=== PATIENT | male | born 1960 | race American Indian/Alaskan Native ===

== ENCOUNTER 2016-11-14 18:27 | Emergency (ER) | payer SELFPAY ==
--- NOTE | 2016-11-14 20:36 | Emergency Department Report ---
ED General Adult HPI - General Chief complaint: Headache Stated complaint: HEADACHE Time Seen by Provider: 11/14/16 20:36 Source: patient Mode of arrival: Ambulatory Limitations: No Limitations - History of Present Illness Initial comments: Patient is a 56-year-old male past medical history of retention. Who presents with headache that has been going on intermittently for the last 4 days. She states that the headache is located on his right temporal lobe and it radiates to his forehead. He denies having nausea or vomiting. Nothing seems to make the headache better or worse. Patient has tried Goody's powder with no effect. He states that he gets headaches like these they usually go away. Headache has been gradually going on no sudden onset. - Related Data Previous Rx's Medication Instructions Recorded Last Taken Type Aspirin [Aspirin TAB] 81 mg PO QDAY #30 tablet 11/25/14 Unknown Rx Atenolol [Tenormin] 50 mg PO DAILY #90 tab 11/25/14 Unknown Rx Gabapentin [Neurontin] 300 mg PO BID #60 capsule 11/25/14 Unknown Rx Lisinopril [Zestril TAB] 10 mg PO QDAY #30 tablet 11/25/14 Unknown Rx metFORMIN [Glucophage] 500 mg PO BID #120 tablet 11/25/14 Unknown Rx Allergies Allergy/AdvReac Type Severity Reaction Status Date / Time No Known Allergies Allergy Verified 12/21/13 07:53 ED Review of Systems ROS: Stated complaint: HEADACHE Other details as noted in HPI Constitutional: denies: chills, fever Eyes: denies: eye pain, eye discharge, vision change ENT: denies: ear pain, throat pain Respiratory: no symptoms reported Cardiovascular: denies: chest pain, palpitations Endocrine: no symptoms reported Gastrointestinal: denies: abdominal pain, nausea, diarrhea Genitourinary: as per HPI Musculoskeletal: denies: back pain, joint swelling, arthralgia Skin: denies: rash, lesions Neurological: headache Psychiatric: as per HPI Hematological/Lymphatic: denies: easy bleeding, easy bruising ED Past Medical Hx - Past Medical History Previous Medical History?: Yes Hx Hypertension: Yes Hx Diabetes: Yes Hx Liver Disease: Yes (hepatitis c) Additional medical history: high cholesterol. neuropathy. pancreatitis - Surgical History Past Surgical History?: Yes - Social History Smoking Status: Current Some Day Smoker Substance Use Type: Non Opiate Pain, Prescribed - Medications Home Medications: Home Medications Medication Instructions Recorded Confirmed Last Taken Type Aspirin [Aspirin TAB] 81 mg PO QDAY #30 tablet 11/25/14 11/14/16 Unknown Rx Atenolol [Tenormin] 50 mg PO DAILY #90 tab 11/25/14 11/14/16 Unknown Rx Gabapentin [Neurontin] 300 mg PO BID #60 capsule 11/25/14 11/14/16 Unknown Rx Lisinopril [Zestril TAB] 10 mg PO QDAY #30 tablet 11/25/14 11/14/16 Unknown Rx metFORMIN [Glucophage] 500 mg PO BID #120 tablet 11/25/14 11/14/16 Unknown Rx ED Physical Exam - General Limitations: No Limitations General appearance: alert, in no apparent distress - Head Head exam: Present: atraumatic, normocephalic - Eye Eye exam: Present: normal appearance - ENT ENT exam: Present: mucous membranes moist - Neck Neck exam: Present: normal inspection - Respiratory Respiratory exam: Present: normal lung sounds bilaterally. Absent: respiratory distress - Cardiovascular Cardiovascular Exam: Present: regular rate, normal rhythm. Absent: systolic murmur, diastolic murmur, rubs, gallop - GI/Abdominal GI/Abdominal exam: Present: soft, normal bowel sounds - Extremities Exam Extremities exam: Present: normal inspection - Back Exam Back exam: Present: normal inspection - Neurological Exam Neurological exam: Present: alert, oriented X3, CN II-XII intact, normal gait - Psychiatric Psychiatric exam: Present: normal affect, normal mood - Skin Skin exam: Present: warm, dry, intact, normal color. Absent: rash ED Course Vital Signs 11/14/16 11/14/16 18:37 23:54 Temperature 98.8 F Pulse Rate 70 67 Respiratory 18 16 Rate Blood Pressure 147/106 Blood Pressure 165/98 [Left] O2 Sat by Pulse 100 98 Oximetry - Reevaluation(s) Reevaluation #1: 11/14/16 21:38 Patient's headache is better will send patient home due to CT had been negative. Additional verbal discharge instructions were given. ED Medical Decision Making - EKG Data -: EKG Interpreted by Me - EKG Data 11/15/16 01:39 Chief sinus rhythm and no st segment elevation or t-wave inversions - Radiology Data Radiology results: report reviewed, image reviewed CT head noncontrast: Shows no acute intracranial findings. - Medical Decision Making Chief medical diagnosis: Tension headache Differential medical diagnosis: Brain tumor, cluster headache We'll get CT head, due to patient having headache without control of symptoms by oral medication patient will require IV medication and IV Reglan and IV Benadryl. Patient's headache is better due to patient's symptoms and gradual onset it is likely patient had a tension headache. Patient has no neurological deficits will send patient home. Critical care attestation.: If time is entered above; I have spent that time in minutes in the direct care of this critically ill patient, excluding procedure time. ED Disposition Clinical Impression: Tension headache Disposition: DC-01 TO HOME OR SELFCARE Is pt being admited?: No Does the pt Need Aspirin: No Condition: Stable Instructions: Tension Headache (ED) Referrals: PRIMARY CARE, [Primary Care Provider] - 3-5 Days Time of Disposition: 23:48
[2016-11-14] MEDS ORDERED: BENADRYL IV ONE (20:58)
[2016-11-14] MEDS ORDERED: REGLAN IV ONE (20:58)
[2016-11-14] MEDS ORDERED: NACL 0.9% 1000 ML 1,000 ML IV ONE (20:59)
--- NOTE | 2016-11-14 21:45 | Cat Scan Report ---
FINAL REPORT PROCEDURE: CT HEAD/BRAIN WO CON TECHNIQUE: Computerized tomography of the head was performed without contrast material. HISTORY: headache COMPARISON: No prior studies are available for comparison. FINDINGS: Skull and scalp: Normal. Paranasal sinuses: Normal. Ventricles and subarachnoid spaces: Normal. Cerebrum: No evidence of hemorrhage, acute infarction or mass . Cerebellum and brainstem: No evidence of hemorrhage, acute infarction or mass. Vasculature: Normal. Comments: None. IMPRESSION: Normal Examination
[2016-11-14 23:55] VITALS: BP 165/98
== END 2016-11-15 00:10 | disposition home or self-care (01) ==
LOC: ED 18:27
DX: G44.209 Tension-type headache, unspecified, not intractable (principal); I10 Essential (primary) hypertension; E11.9 Type 2 diabetes mellitus without complications; F17.200 Nicotine dependence, unspecified, uncomplicated
CPT/HCPCS: 70450; 93005; 93010; 96361; 96374; 96375; 99283; J1200; J2765; J7030

== ENCOUNTER 2017-01-29 13:09 | Emergency (ER) | payer SELFPAY ==
[2017-01-29 13:20] VITALS: BP 139/91
--- NOTE | 2017-01-29 14:02 | XRay Report ---
XRAY LEFT HAND THREE VIEWS: 01/29/17 13:09:00 CLINICAL: Fall with injury to the third, fourth and fifth digits. Pain. FINDINGS: No fracture or dislocation. Soft tissue swelling of the third, fourth and fifth digits. No foreign body or soft tissue air. 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 Mild radiocarpal joint arthritis. IMPRESSION: Soft tissue injury. Mild arthritis.
--- NOTE | 2017-01-29 14:18 | Emergency Department Report ---
ED Upper Extremity Inj HPI - General Chief Complaint: Extremity Injury, Upper Stated Complaint: SWELLING/PAIN IN LEFT HAND Time Seen by Provider: 01/29/17 14:03 Source: patient Mode of arrival: Ambulatory Limitations: No Limitations - History of Present Illness MD Complaint: Injury to:: left -: Sudden Other Extremity Injury: Hand: Left Other Injuries: none Handedness: right Place: home Improves With: none Worsens With: movement of extremity Context: fall Associated Symptoms: denies: weakness, numbness, neck pain, suspects foreign body, nausea/vomiting, heard/felt popping sensat - Related Data Previous Rx's Medication Instructions Recorded Last Taken Type Aspirin [Aspirin TAB] 81 mg PO QDAY #30 tablet 11/25/14 Unknown Rx Atenolol [Tenormin] 50 mg PO DAILY #90 tab 11/25/14 Unknown Rx Gabapentin [Neurontin] 300 mg PO BID #60 capsule 11/25/14 Unknown Rx Lisinopril [Zestril TAB] 10 mg PO QDAY #30 tablet 11/25/14 Unknown Rx metFORMIN [Glucophage] 500 mg PO BID #120 tablet 11/25/14 Unknown Rx Amoxicillin [Trimox CAP] 500 mg PO BID #20 capsule 01/29/17 Unknown Rx Allergies Allergy/AdvReac Type Severity Reaction Status Date / Time No Known Allergies Allergy Verified 01/29/17 13:18 ED Review of Systems ROS: Stated complaint: SWELLING/PAIN IN LEFT HAND Other details as noted in HPI Comment: All other systems reviewed and negative Constitutional: no symptoms reported, see HPI Eyes: as per HPI ENT: as per HPI Respiratory: no symptoms reported, see HPI Cardiovascular: as per HPI Endocrine: no symptoms reported, see HPI Gastrointestinal: as per HPI Genitourinary: as per HPI Musculoskeletal: as per HPI, other (l hand pain) Skin: as per HPI Neurological: as per HPI Psychiatric: as per HPI Hematological/Lymphatic: as per HPI ED Past Medical Hx - Past Medical History Hx Hypertension: Yes Hx Diabetes: Yes Hx Liver Disease: Yes (hepatitis c) Additional medical history: high cholesterol. neuropathy. pancreatitis - Surgical History Past Surgical History?: No - Social History Smoking Status: Never Smoker Substance Use Type: None - Medications Home Medications: Home Medications Medication Instructions Recorded Confirmed Last Taken Type Aspirin [Aspirin TAB] 81 mg PO QDAY #30 tablet 11/25/14 11/14/16 Unknown Rx Atenolol [Tenormin] 50 mg PO DAILY #90 tab 11/25/14 11/14/16 Unknown Rx Gabapentin [Neurontin] 300 mg PO BID #60 capsule 11/25/14 11/14/16 Unknown Rx Lisinopril [Zestril TAB] 10 mg PO QDAY #30 tablet 11/25/14 11/14/16 Unknown Rx metFORMIN [Glucophage] 500 mg PO BID #120 tablet 11/25/14 11/14/16 Unknown Rx Amoxicillin [Trimox CAP] 500 mg PO BID #20 capsule 01/29/17 Unknown Rx ED Physical Exam - General Limitations: No Limitations General appearance: alert - Head Head exam: Present: atraumatic - Eye Eye exam: Present: PERRL - ENT ENT exam: Present: mucous membranes moist - Neck Neck exam: Present: normal inspection - Respiratory Respiratory exam: Present: normal lung sounds bilaterally - Cardiovascular Cardiovascular Exam: Present: regular rate - GI/Abdominal GI/Abdominal exam: Present: soft - Rectal Rectal exam: Present: deferred - Extremities Exam Extremities exam: Present: normal inspection, full ROM, normal capillary refill. Absent: tenderness, pedal edema, joint swelling - Expanded Upper Extremity Exam Left General: Present: other Shoulder Exam: Present: normal inspection Upper Arm exam: Present: normal inspection Elbow exam: Present: normal inspection Forearm Wrist exam: Present: normal inspection, full ROM. Absent: tenderness, swelling, abrasion, laceration, ecchymosis, deformity, crepidus, dislocation, erythema, tenderness over anatomical snuff box, pain with axial thumb loading Hand Wrist exam: Present: normal inspection, full ROM, swelling, erythema. Absent: tenderness, abrasion, laceration, ecchymosis, deformity, crepidus, dislocation, amputation, nail avulsion, subungual hematoma - Back Exam Back exam: Present: normal inspection, full ROM. Absent: tenderness, CVA tenderness (R) - Neurological Exam Neurological exam: Present: alert, oriented X3, CN II-XII intact, normal gait - Psychiatric Psychiatric exam: Present: normal affect, normal mood - Skin Skin exam: Present: warm, dry, other (hand slightly red) ED Course Vital Signs 01/29/17 13:18 Temperature 99 F Pulse Rate 76 Respiratory 16 Rate Blood Pressure 139/91 O2 Sat by Pulse 98 Oximetry - Reevaluation(s) Reevaluation #1: 01/29/17 14:21 to er p fall several days ago w persistent hand pain hand swollen and slightly red no snuff box tenderness pt does have DM he thinks he may have scratched his hand but no lesion to the hand is noted rapid cap refill good pulses xray noted given redness and dm will place on anbx and monitor pt will see pcp on Tuesday Critical care attestation.: If time is entered above; I have spent that time in minutes in the direct care of this critically ill patient, excluding procedure time. ED Disposition Clinical Impression: Hand pain, right, Cellulitis Disposition: TO HOME OR SELFCARE Is pt being admited?: No Does the pt Need Aspirin: No Condition: Stable Instructions: Hand Sprain (ED) Additional Instructions: kevin to rest hand keep ice on hand med as ordered today follow up with pcp Prescriptions: Amoxicillin [Trimox CAP] 500 mg PO BID #20 capsule Referrals: SEN PRICE MD [Staff Physician] - 3-5 Days Time of Disposition: 14:15
== END 2017-01-29 14:31 | disposition home or self-care (01) ==
LOC: ED 13:09
DX: L03.114 Cellulitis of left upper limb (principal); L03.113 Cellulitis of right upper limb; I10 Essential (primary) hypertension; E11.40 Type 2 diabetes mellitus with diabetic neuropathy, unspecified; Z79.82 Long term (current) use of aspirin
CPT/HCPCS: 99283

== ENCOUNTER 2018-11-25 07:40 | Emergency (ER) | payer OTHER ==
[2018-11-25] MEDS ORDERED: CATAPRES PO ONE (08:40)
--- NOTE | 2018-11-25 08:40 | Emergency Department Report ---
ED Lower Extremity HPI - General Chief Complaint: Extremity Problem,Nontraumatic Stated Complaint: LEFT TOE INJURY Time Seen by Provider: 11/25/18 08:28 Source: patient Mode of arrival: Ambulatory Limitations: No Limitations - History of Present Illness Initial Comments: Patient is 58 years old male with history of hypertension and diabetes. Patient presented to the ER complaining of left fourth toe pain and swelling for the last 3 days. Patient stated that he is unsure if he injured it or not. Patient denied any fever or chills. Patient stated that he is compliant with his blood pressure medication. He denied any headache, neck pain, weakness numbness or tingling sensation. No bowel or bladder incontinence. No chest pain or shortness of breath. MD Complaint: foot injury - Related Data Previous Rx's Medication Instructions Recorded Last Taken Type Aspirin 81 mg PO QDAY #30 tablet 11/25/14 Unknown Rx Atenolol [Tenormin] 50 mg PO DAILY #90 tab 11/25/14 Unknown Rx Gabapentin [Neurontin] 300 mg PO BID #60 capsule 11/25/14 Unknown Rx Lisinopril [Zestril TAB] 10 mg PO QDAY #30 tablet 11/25/14 Unknown Rx metFORMIN [Glucophage] 500 mg PO BID #120 tablet 11/25/14 Unknown Rx Amoxicillin [Trimox CAP] 500 mg PO BID #20 capsule 01/29/17 Unknown Rx Allergies Allergy/AdvReac Type Severity Reaction Status Date / Time No Known Allergies Allergy Verified 11/25/18 07:42 ED Review of Systems ROS: Stated complaint: LEFT TOE INJURY Other details as noted in HPI Comment: All other systems reviewed and negative Constitutional: denies: chills, fever Cardiovascular: denies: chest pain Gastrointestinal: denies: abdominal pain, nausea, vomiting Neurological: denies: headache, weakness, numbness, paresthesias, confusion ED Past Medical Hx - Past Medical History Hx Hypertension: Yes Hx Diabetes: Yes Hx Liver Disease: Yes (hepatitis c) Additional medical history: high cholesterol. neuropathy. pancreatitis - Surgical History Past Surgical History?: No - Social History Smoking Status: Never Smoker Substance Use Type: None - Medications Home Medications: Home Medications Medication Instructions Recorded Confirmed Last Taken Type Aspirin 81 mg PO QDAY #30 tablet 11/25/14 11/14/16 Unknown Rx Atenolol [Tenormin] 50 mg PO DAILY #90 tab 11/25/14 11/14/16 Unknown Rx Gabapentin [Neurontin] 300 mg PO BID #60 capsule 11/25/14 11/14/16 Unknown Rx Lisinopril [Zestril TAB] 10 mg PO QDAY #30 tablet 11/25/14 11/14/16 Unknown Rx metFORMIN [Glucophage] 500 mg PO BID #120 tablet 11/25/14 11/14/16 Unknown Rx Amoxicillin [Trimox CAP] 500 mg PO BID #20 capsule 01/29/17 Unknown Rx ED Physical Exam - General Limitations: No Limitations General appearance: alert, in no apparent distress - Head Head exam: Present: atraumatic, normocephalic - ENT ENT exam: Present: normal exam - Neck Neck exam: Present: normal inspection. Absent: tenderness, meningismus - Respiratory Respiratory exam: Present: normal lung sounds bilaterally - Cardiovascular Cardiovascular Exam: Present: normal heart sounds - Expanded Lower Extremity Exam Left Knee exam: Present: normal inspection Lower Leg exam: Present: normal inspection Ankle exam: Present: normal inspection Foot/Toe exam: Present: tenderness (left fourth toe), swelling. Absent: abrasion, laceration, ecchymosis, deformity ED Course Vital Signs 11/25/18 11/25/18 07:42 08:54 Temperature 98.4 F 98.2 F Pulse Rate 80 68 Respiratory 18 18 Rate Blood Pressure 163/106 Blood Pressure 163/99 [Left] O2 Sat by Pulse 99 100 Oximetry ED Lower Extremity MDM - Radiology Data Radiology results: image reviewed interpreted by me: X-ray of the left fourth toe is negative for acute finding. Critical care attestation.: If time is entered above; I have spent that time in minutes in the direct care of this critically ill patient, excluding procedure time. ED Disposition Clinical Impression: Malignant hypertension, Cellulitis of toe, left Disposition: DC-01 TO HOME OR SELFCARE Is pt being admited?: No Condition: Stable Instructions: Cellulitis (ED), Hypertension (ED) Referrals: [facility] [Other] - 3-5 Days
--- NOTE | 2018-11-25 10:31 | XRay Report ---
HISTORY: Left fourth toe pain and swelling COMPARISON: None. TECHNIQUE: AP lateral and obliques FINDINGS: Bones: Small fragment of calcium at the articular space Joint spaces: Irregular cortex of the articular space Soft tissues: No significant abnormality. Additional findings: None. IMPRESSION: 1. Abnormal appearance of the mid distal phalanx of the fourth digit, destructive process should be considered recommend clinical correlation. MR is recommended further evaluation Signer Name: Jeff Madison MD Signed: 11/25/2018 10:27 AM Workstation Name: [id number]
[2018-11-25 10:48] VITALS: BP 150/99
== END 2018-11-25 10:48 | disposition home or self-care (01) ==
LOC: ED 07:40
DX: L03.032 Cellulitis of left toe (principal); I10 Essential (primary) hypertension; E11.9 Type 2 diabetes mellitus without complications; E78.00 Pure hypercholesterolemia, unspecified; Z86.19 Personal history of other infectious and parasitic diseases; Z79.84 Long term (current) use of oral hypoglycemic drugs

== ENCOUNTER 2019-06-20 18:10 | Emergency (ER) | payer SELFPAY ==
[2019-06-20] MEDS ORDERED: TETANUS,DIPH,PERTUSS(ACELL) VACCINE 0.5 ML SYRINGE IM ONE (19:57)
--- NOTE | 2019-06-20 19:57 | Emergency Department Report ---
Blank Doc - Documentation Documentation: 58-year-old male that presents with right foot pain s/p stepped on a nail. De oxana being UTD with tetanus. This initial assessment/diagnostic orders/clinical plan/treatment(s) is/are subject to change based on patient's health status, clinical progression and re- assessment by fellow clinical providers in the ED. Further treatment and workup at subsequent clinical providers discretion. Patient/guardians urged not to elope from the ED as their condition may be serious if not clinically assessed and managed. Initial orders include: 1- Patient sent to [facility] for further evaluation and treatment 2- xrays 3- tetanus needed
[2019-06-20 19:58] VITALS: BP 144/90
[2019-06-20] MEDS ORDERED: IBUPROFEN 600 MG TAB PO ONE (20:23)
[2019-06-20] MEDS ORDERED: levoFLOXacin 500 MG TAB PO ONE (20:23)
[2019-06-20] MEDS ORDERED: ACETAMINOPHEN 500 MG TAB PO ONE (20:23)
--- NOTE | 2019-06-20 21:06 | XRay Report ---
RIGHT FOOT 3 VIEWS INDICATION / CLINICAL INFORMATION: Right foot pain; r/o foreign body; Pt. reports he stepped on a "santiago nail" yesterday. COMPARISON: None available. FINDINGS: BONES / JOINT(S): No acute fracture or subluxation. There is a moderate size marginal erosion involvi ng the fifth metatarsal head laterally suggestive of gout. No associated joint space narrowing is see n. There is a small plantar calcaneal spur. There are mild degenerative changes involving the dorsum of the hindfoot. There are also degenerative changes involving the tibiotalar joint. SOFT TISSUES: I see no evidence of a radiopaque foreign body. ADDITIONAL FINDINGS: None. Signer Name: Harrison Maciel MD Signed: 06/20/2019 9:01 PM Workstation Name: [email or web address]
--- NOTE | 2019-06-20 21:35 | Emergency Department Report ---
ED Lower Extremity HPI - General Chief Complaint: Extremity Injury, Lower Stated Complaint: STEPPED ON NAIL Time Seen by Provider: 06/20/19 19:56 Source: patient Mode of arrival: Ambulatory Limitations: No Limitations - History of Present Illness Initial Comments: Patient is a 58-year-old -[place] male with a history of hypertension and [id number] diabetes who presented to the ED with complaint of acute onset persistent severe right plantar foot pain after he stepped on a santiago nail that appears through his shoes into his plantar right foot over 12 hours ago. Patient states that the pain is worse with any ambulation and that he can hardly bear weight on the right foot. Patient denies fall, fever, chills, nausea, vomiting, dizziness, numbness and tingling of right foot. Patient states that he is not up-to-date with his tetanus vaccinations. MD Complaint: foot injury (right foot puncture wound, stepped on an old santiago nail) -: Sudden, hour(s) (12) Injury: Foot: Right (right plantar foot pain due to puncture wound) Type of Injury: laceration (puncture wound), puncture wound Place: home Severity: severe Severity scale (0 -10): 7 Improves With: nothing Worsens With: weight bearing, movement, palpation Context: stepped on nail Associated Symptoms: able to partially bear weight. denies: snap/pop sensation, swelling, numbness, tingling - Related Data Previous Rx's Medication Instructions Recorded Last Taken Type Aspirin 81 mg PO QDAY #30 tablet 11/25/14 Unknown Rx Gabapentin 300 mg PO BID #60 capsule 11/25/14 Unknown Rx atenoloL [Tenormin] 50 mg PO DAILY #90 tab 11/25/14 Unknown Rx lisinopriL [Zestril TAB] 10 mg PO QDAY #30 tablet 11/25/14 Unknown Rx metFORMIN [Glucophage] 500 mg PO BID #120 tablet 11/25/14 Unknown Rx Amoxicillin [Trimox CAP] 500 mg PO BID #20 capsule 01/29/17 Unknown Rx cephALEXin [Keflex] 500 mg PO Q8HR #28 cap 11/25/18 Unknown Rx Ciprofloxacin HCl [Ciprofloxacin 500 mg PO Q12HR #20 tab 06/20/19 Unknown Rx TAB] Ibuprofen [Motrin] 800 mg PO Q8HR PRN #30 tablet 06/20/19 Unknown Rx traMADoL [Ultram] 50 mg PO Q6HR PRN #12 tablet 06/20/19 Unknown Rx Allergies Allergy/AdvReac Type Severity Reaction Status Date / Time No Known Allergies Allergy Verified 11/25/18 07:42 ED Review of Systems ROS: Stated complaint: STEPPED ON NAIL Other details as noted in HPI Constitutional: denies: chills, fever Eyes: denies: eye pain, eye discharge, vision change ENT: denies: ear pain, throat pain Respiratory: denies: cough, shortness of breath, wheezing Cardiovascular: denies: chest pain, palpitations Endocrine: no symptoms reported Gastrointestinal: denies: abdominal pain, nausea, diarrhea Genitourinary: denies: urgency, dysuria Musculoskeletal: arthralgia (right plantar foot pain due to puncture wound). denies: back pain, joint swelling Skin: other (Right plantar foot pain due to puncture wound). denies: rash, le sions Neurological: denies: headache, weakness, paresthesias Psychiatric: denies: anxiety, depression Hematological/Lymphatic: denies: easy bleeding, easy bruising ED Past Medical Hx - Past Medical History Previous Medical History?: Yes Hx Hypertension: Yes Hx Diabetes: Yes Hx Liver Disease: Yes (hepatitis c) Additional medical history: high cholesterol. neuropathy. pancreatitis - Surgical History Past Surgical History?: No - Social History Smoking Status: Never Smoker Substance Use Type: None - Medications Home Medications: Home Medications Medication Instructions Recorded Confirmed Last Taken Type Aspirin 81 mg PO QDAY #30 tablet 11/25/14 11/14/16 Unknown Rx Gabapentin 300 mg PO BID #60 capsule 11/25/14 11/14/16 Unknown Rx atenoloL [Tenormin] 50 mg PO DAILY #90 tab 11/25/14 11/14/16 Unknown Rx lisinopriL [Zestril TAB] 10 mg PO QDAY #30 tablet 11/25/14 11/14/16 Unknown Rx metFORMIN [Glucophage] 500 mg PO BID #120 tablet 11/25/14 11/14/16 Unknown Rx Amoxicillin [Trimox CAP] 500 mg PO BID #20 capsule 01/29/17 Unknown Rx cephALEXin [Keflex] 500 mg PO Q8HR #28 cap 11/25/18 Unknown Rx Ciprofloxacin HCl [Ciprofloxacin 500 mg PO Q12HR #20 tab 06/20/19 Unknown Rx TAB] Ibuprofen [Motrin] 800 mg PO Q8HR PRN #30 tablet 06/20/19 Unknown Rx traMADoL [Ultram] 50 mg PO Q6HR PRN #12 tablet 06/20/19 Unknown Rx ED Physical Exam - General Limitations: No Limitations General appearance: alert, in no apparent distress - Head Head exam: Present: atraumatic, normocephalic, normal inspection - Eye Eye exam: Present: normal appearance, PERRL, EOMI Pupils: Present: normal accommodation - ENT ENT exam: Present: normal exam, normal orophraynx, mucous membranes moist, TM's normal bilaterally, normal external ear exam - Neck Neck exam: Present: normal inspection, full ROM - Respiratory Respiratory exam: Present: normal lung sounds bilaterally. Absent: respiratory distress, wheezes, rhonchi, chest wall tenderness, accessory muscle use, decreased breath sounds - Cardiovascular Cardiovascular Exam: Present: regular rate, normal rhythm, normal heart sounds. Absent: systolic murmur, diastolic murmur, rubs, gallop - GI/Abdominal GI/Abdominal exam: Present: soft, normal bowel sounds. Absent: tenderness, guarding, rebound, hyperactive bowel sounds, hypoactive bowel sounds, organomegaly - Extremities Exam Extremities exam: Present: normal inspection, full ROM, tenderness (Palpable right plantar foot tenderness due to small puncture wound on the right plantar foot), normal capillary refill - Back Exam Back exam: Present: normal inspection, full ROM. Absent: tenderness, muscle spasm - Neurological Exam Neurological exam: Present: alert, oriented X3, CN II-XII intact, normal gait, reflexes normal - Psychiatric Psychiatric exam: Present: normal affect, normal mood - Skin Skin exam: Present: warm, dry, intact, normal color, other (Small right plantar foot puncture wound with tenderness). Absent: rash ED Course Vital Signs 06/20/19 19:55 Temperature 98 F Pulse Rate 74 Respiratory 18 Rate Blood Pressure 144/90 O2 Sat by Pulse 99 Oximetry ED Lower Extremity MDM - Radiology Data Radiology results: report reviewed, image reviewed Findings [facility] [address] [place] [address] XRay Report Signed Patient: RUMA SIMPSON MR#: [id number] : 1960 Acct:[id number] Age/Sex: 58 / M ADM Date: 06/20/19 Loc: ED Attending Dr: Ordering Physician: CATHY LAGOS NP Date of Service: 06/20/19 Procedure(s): XR foot 3+V RT Accession Number(s): [id number] cc: CATHY LAGOS NP Fluoro Time In Minutes: RIGHT FOOT 3 VIEWS INDICATION / CLINICAL INFORMATION: Right foot pain; r/o foreign body; Pt. reports he stepped on a "santiago nail" yesterday. COMPARISON: None available. FINDINGS: BONES / JOINT(S): No acute fracture or subluxation. There is a moderate size marginal erosion involving the fifth metatarsal head laterally suggestive of gout. No associated joint space narr owing is seen. There is a small plantar calcaneal spur. There are mild degenerative changes involving the dorsum of the hindfoot. There are also degenerative changes involving the tibiotalar joint. SOFT TISSUES: I see no evidence of a radiopaque foreign body. ADDITIONAL FINDINGS: None. Signer Name: Harrison Maciel MD Signed: 06/20/2019 9:01 PM Workstation Name: [id number] Transcribed By: RT Dictated By: Harrison Maciel MD Electronically Authenticated By: Harrison Maciel MD Signed Date/Time: 06/20/192100 DD/ 58 TD/TT: - Medical Decision Making This is a 58-year-old male who presented to the ED with acute onset severe right plantar foot pain due to a puncture wound after he stepped on an old santiago nail that appears through his shoes into his right plantar foot 12 hours ago. In the ED, patient is alert and oriented x3 and is not in any distress but appears to be in pain. Patient was treated for pain in the ED and also received tetanus vaccinations. Patient also received initial oral antibiotics in the ED ciprofloxacin 500 mg p.o. x1. Right foot x-ray shows no evidence of radiopaque foreign body in the right plantar foot or acute fracture or subluxation. There is a moderate size marginal erosion involving the fifth metatarsal head laterally suggestive of gout. No associated joint space narrowing is seen. There is a small plantar calcaneal spur. There are mild degenerative changes involving the dorsum of the hindfoot. There are also degenerative changes involving the tibiotalar. On reevaluation, patient's pain is well controlled with medications. Patient was discharged home on pain medications and prophylactic oral antibiotics and was advised to follow-up with his primary care physician in 7 to 10 days for reevaluation or return to the ED immediately if symptoms get worse. Patient was advised to return to the ED immediately if symptoms get worse. - Differential Diagnosis Puncture wound; Foot injury; Muscle strain; DJD; Gout Critical care attestation.: If time is entered above; I have spent that time in minutes in the direct care of this critically ill patient, excluding procedure time. ED Disposition Clinical Impression: Puncture wound of plantar aspect of right foot Qualifiers: Encounter type: initial encounter Qualified Code(s): S91.331A - Puncture wound without foreign body, right foot, initial encounter Muscle strain of right foot Qualifiers: Encounter type: initial encounter Qualified Code(s): S96.911A - Strain of unspecified muscle and tendon at ankle and foot level, right foot, initial encounter Degenerative joint disease of right foot Qualifiers: Osteoarthritis type: primary Qualified Code(s): M19.071 - Primary osteoarthritis, right ankle and foot Disposition: - TO HOME OR SELFCARE Is pt being admited?: No Does the pt Need Aspirin: No Condition: Stable Instructions: Muscle Strain (ED), Puncture Wound (ED), Osteoarthritis (ED) Additional Instructions: Take medications with food, drink plenty of fluids and follow-up with your primary care physician in 7 to 10 days for reevaluation. Return to the ED immediately if symptoms get worse. Prescriptions: Ciprofloxacin HCl [Ciprofloxacin TAB] 500 mg PO Q12HR #20 tab Ibuprofen [Motrin] 800 mg PO Q8HR PRN #30 tablet PRN Reason: Pain , Severe (7-10) traMADoL [Ultram] 50 mg PO Q6HR PRN #12 tablet PRN Reason: Pain Referrals: [facility] [Outside] - 3-5 Days Time of Disposition: 21:41 Print Language: OCCITAN
== END 2019-06-20 21:55 | disposition home or self-care (01) ==
LOC: ED 18:10
DX: S96.911A Strain of unspecified muscle and tendon at ankle and foot level, right foot, initial encounter (principal); S91.331A Puncture wound without foreign body, right foot, initial encounter; M19.071 Primary osteoarthritis, right ankle and foot; I10 Essential (primary) hypertension; E78.00 Pure hypercholesterolemia, unspecified; E11.40 Type 2 diabetes mellitus with diabetic neuropathy, unspecified; Z79.82 Long term (current) use of aspirin; Z79.899 Other long term (current) drug therapy; W22.8XXA Striking against or struck by other objects, initial encounter; Y93.89 Activity, other specified; Y92.89 Other specified places as the place of occurrence of the external cause; Y99.8 Other external cause status
CPT/HCPCS: 90471; 90715

== ENCOUNTER 2021-02-07 09:17 | Emergency (ER) | payer SELFPAY ==
[2021-02-07] MEDS ORDERED: METOPROLOL SUCCINATE XL 100 MG TAB PO ONE (10:13)
--- NOTE | 2021-02-07 10:25 | Emergency Department Report ---
ED General Adult HPI - General Chief complaint: High BP Stated complaint: BLOOD PRESSURE Time Seen by Provider: 02/07/21 10:06 Source: patient Mode of arrival: Ambulatory Limitations: No Limitations - History of Present Illness Initial comments: Patient is a 60-year-old male presents emergency room with complaints of elevated heart rate. He states that he gets his medications refilled from the [facility]. He states that he takes 6 pills a day for his medical conditions. He states he just got his medications refilled earlier this week. He states 2 days ago he realized that he only had 5 pills and he was missing one of his prescriptions. he states that he realized the medication he was missing was metoprolol XL 100 mg daily. Patient states that he called the clinic and they called him in the medication to the pharmacy but he has not yet went to get it. He states he presents today due to having a fast heart rate. He denies any chest pain, shortness of breath, leg swelling. Past medical history of hypertension, diabetes, hep C, pancreatitis, hyperlipidemia, neuropathy. No allergies to medications. - Related Data Previous Rx's Medication Instructions Recorded Last Taken Type Aspirin 81 mg PO QDAY #30 tablet 11/25/14 Unknown Rx Gabapentin 300 mg PO BID #60 capsule 11/25/14 Unknown Rx atenoloL [Tenormin] 50 mg PO DAILY #90 tab 11/25/14 Unknown Rx lisinopriL [Zestril TAB] 10 mg PO QDAY #30 tablet 11/25/14 Unknown Rx metFORMIN [Glucophage] 500 mg PO BID #120 tablet 11/25/14 Unknown Rx Amoxicillin [Trimox CAP] 500 mg PO BID #20 capsule 01/29/17 Unknown Rx cephALEXin [Keflex] 500 mg PO Q8HR #28 cap 11/25/18 Unknown Rx Ciprofloxacin HCl [Ciprofloxacin 500 mg PO Q12HR #20 tab 06/20/19 Unknown Rx TAB] Ibuprofen [Motrin] 800 mg PO Q8HR PRN #30 tablet 06/20/19 Unknown Rx traMADoL [Ultram] 50 mg PO Q6HR PRN #12 tablet 06/20/19 Unknown Rx Metoprolol Xl [Metoprolol 100 mg PO QDAY #30 tablet 02/07/21 Unknown Rx SUCCINATE ER TAB] Allergies Allergy/AdvReac Type Severity Reaction Status Date / Time No Known Allergies Allergy Verified 02/07/21 09:20 ED Review of Systems ROS: Stated complaint: BLOOD PRESSURE Other details as noted in HPI Comment: All other systems reviewed and negative ED Past Medical Hx - Past Medical History Hx Hypertension: Yes Hx Diabetes: Yes Hx Liver Disease: Yes (hepatitis c) Additional medical history: high cholesterol. neuropathy. pancreatitis - Social History Smoking Status: Never Smoker Substance Use Type: None - Medications Home Medications: Home Medications Medication Instructions Recorded Confirmed Last Taken Type Aspirin 81 mg PO QDAY #30 tablet 11/25/14 11/14/16 Unknown Rx Gabapentin 300 mg PO BID #60 capsule 11/25/14 11/14/16 Unknown Rx atenoloL [Tenormin] 50 mg PO DAILY #90 tab 11/25/14 11/14/16 Unknown Rx lisinopriL [Zestril TAB] 10 mg PO QDAY #30 tablet 11/25/14 11/14/16 Unknown Rx metFORMIN [Glucophage] 500 mg PO BID #120 tablet 11/25/14 11/14/16 Unknown Rx Amoxicillin [Trimox CAP] 500 mg PO BID #20 capsule 01/29/17 Unknown Rx cephALEXin [Keflex] 500 mg PO Q8HR #28 cap 11/25/18 Unknown Rx Ciprofloxacin HCl [Ciprofloxacin 500 mg PO Q12HR #20 tab 06/20/19 Unknown Rx TAB] Ibuprofen [Motrin] 800 mg PO Q8HR PRN #30 tablet 06/20/19 Unknown Rx traMADoL [Ultram] 50 mg PO Q6HR PRN #12 tablet 06/20/19 Unknown Rx Metoprolol Xl [Metoprolol 100 mg PO QDAY #30 tablet 02/07/21 Unknown Rx SUCCINATE ER TAB] ED Physical Exam - General Limitations: No Limitations General appearance: alert, in no apparent distress - Head Head exam: Present: atraumatic, normocephalic - Eye Eye exam: Present: normal appearance - ENT ENT exam: Present: mucous membranes moist - Respiratory Respiratory exam: Present: normal lung sounds bilaterally. Absent: respiratory distress, wheezes, rales, rhonchi, stridor, chest wall tenderness, accessory muscle use, decreased breath sounds, prolonged expiratory - Cardiovascular Cardiovascular Exam: Present: normal rhythm, tachycardia, systolic murmur (systolic murmur) - Neurological Exam Neurological exam: Present: alert, oriented X3 - Psychiatric Psychiatric exam: Present: normal affect, normal mood - Skin Skin exam: Present: warm, dry, intact ED Course Vital Signs 02/07/21 02/07/21 09:23 11:36 Temperature 97.9 F 98.4 F Pulse Rate 129 H 101 H Respiratory 18 18 Rate Blood Pressure 128/82 Blood Pressure 114/81 [Right] O2 Sat by Pulse 99 100 Oximetry ED Medical Decision Making - Medical Decision Making Patient is a 60-year-old male presents emergency room with complaints of elevated heart rate. He states that he gets his medications refilled from the [facility]. He states that he takes 6 pills a day for his medical conditions. He states he just got his medications refilled earlier this week. He states 2 days ago he realized that he only had 5 pills and he was missing one of his prescriptions. he states that he realized the medication he was missing was metoprolol XL 100 mg daily. Patient states that he called the clinic and they called him in the medication to the pharmacy but he has not yet went to get it. He states he presents today due to having a fast heart rate. He denies any chest pain, shortness of breath, leg swelling. Past medical history of hypertension, diabetes, hep C, pancreatitis, hyperlipidemia, neuropathy. No allergies to medications. On exam patient has tachycardia with regular rhythm a nd systolic murmur. Initial vitals with heart rate of 129. patient given his home medication and heart rate improved to 101. Patient given refill of his prescription. Discussed the importance of primary care follow-up and cardiology follow-up. Discuss strict return precautions and advised to return if began experiencing any symptoms. Advised patient Please take medication as prescribed. Follow-up with your primary care doctor. Follow-up with a functional skills tutor. Return to emergency room immediately for any new or worsening symptoms or if you begin experiencing chest pain, shortness of breath, loss of consciousness, feeling like you want to pass out, leg swelling, etc. Critical care attestation.: If time is entered above; I have spent that time in minutes in the direct care of this critically ill patient, excluding procedure time. ED Disposition Clinical Impression: Tachycardia, Non compliance w medication regimen Disposition: HOME / SELF CARE / HOMELESS Is pt being admited?: No Does the pt Need Aspirin: No Condition: Stable Additional Instructions: Please take medication as prescribed. Follow-up with your primary care doctor. Follow-up with a functional skills tutor. Return to emergency room immediately for any new or worsening symptoms or if you begin experiencing chest pain, shortness of breath, loss of consciousness, feeling like you want to pass out, leg swelling, etc. Prescriptions: Metoprolol Xl [Metoprolol SUCCINATE ER TAB] 100 mg PO QDAY #30 tablet Referrals: JOHANN CALZADA MD [Staff Physician] - 2-3 Days PRIMARY CARE, [Primary Care Provider] - 2-3 Days Time of Disposition: 11:35 Print Language: YORUBA
[2021-02-07 11:37] VITALS: BP 114/81
== END 2021-02-07 12:06 | disposition home or self-care (01) ==
LOC: ED 09:17
DX: R00.0 Tachycardia, unspecified (principal); I10 Essential (primary) hypertension; E11.42 Type 2 diabetes mellitus with diabetic polyneuropathy; E78.00 Pure hypercholesterolemia, unspecified; Z91.19 Patient's noncompliance with other medical treatment and regimen; Z79.899 Other long term (current) drug therapy
CPT/HCPCS: 99282